=== PATIENT | female | born 1985 | race Caucasian/White ===

== ENCOUNTER 2018-04-06 13:34 | Emergency (ER) | payer OTHER, SELFPAY ==
[2018-04-06] MEDS ORDERED: Hydromorphone 1 mg/ml Ampule IV ONE (14:01)
[2018-04-06] MEDS ORDERED: BENADRYL 50 MG/ML IV ONE (14:01)
[2018-04-06] MEDS ORDERED: Reglan 10 MG/2 ML IV ONE (14:01)
--- NOTE | 2018-04-06 14:08 | ERPHSYRPT ---
- History of Present Illness Time Seen by Provider: 04/06/18 14:00 Source: patient Exam Limitations: clinical condition Patient Subjective Stated Complaint: pt has hx of migraine headache. migraine started saturday and got worse on saturday.has taken motrin,tylenol Triage Nursing Assessment: pt alert, walked in, resp easy, skin w/d/p Physician History: PATIENT WITH A HISTORY OF MIGRAINE HEADACHES FOR 17 YEARS, COMPLAINS OF BIWEEKLY HEADACHES FOR 5-6 MONTHS. HAS PERSISTENT HEADACHE X 4 DAYS. HAS ASSOCIATED PHOTOPHOBIA, NAUSEA, DENIES FEVER, NECK STIFFNESS, EMESIS OR BLURRED VISION. Timing/Duration: day(s) Quality: throbbing Head Pain Location: frontal Severity of Pain-Max: severe Severity of Pain-Current: severe Recent Head Trauma: frequent headaches Modifying Factors: Improves With: exposure to light Associated Symptoms: sensitive to light Previous symptoms: same symptoms as today Allergies/Adverse Reactions: Penicillins Allergy (Mild, Verified 09/30/16 12:57) Hives ketorolac tromethamine [From Toradol] Allergy (Verified 09/30/16 12:57) Hives latex Allergy (Verified 09/30/16 12:57) Rash sumatriptan [From Imitrex] Allergy (Verified 09/30/16 12:57) Rapid Heart Beat sumatriptan succinate [From Imitrex] Allergy (Verified 09/30/16 12:57) Rapid Heart Beat terbinafine HCl [From Lamisil] Allergy (Verified 09/30/16 12:57) Hives Home Medications: Escitalopram Oxalate 10 mg [Lexapro 10 MG] 10 mg DAILY 04/06/18 [History] Topiramate 100 mg [Topamax 100 MG] 300 mg DAILY 04/06/18 [History] Hx Tetanus, Diphtheria Vaccination/Date Given: Yes Hx Influenza Vaccination/Date Given: Yes Hx Pneumococcal Vaccination/Date Given: No Immunizations Up to Date: Yes - Review of Systems Constitutional: No Fever, No Chills Eyes: No Symptoms Ears, Nose, & Throat: No Symptoms Respiratory: No Cough, No Dyspnea Cardiac: No Chest Pain, No Edema, No Syncope Abdominal/Gastrointestinal: No Abdominal Pain, No Nausea, No Vomiting, No Diarrhea Genitourinary Symptoms: No Dysuria Musculoskeletal: No Back Pain, No Neck Pain Skin: No Rash Neurological: Headache, No Dizziness, No Focal Weakness, No Sensory Changes Psychological: No Symptoms Endocrine: No Symptoms All Other Systems: Reviewed and Negative - Past Medical History Pertinent Past Medical History: Yes Neurological History: Migraines ENT History: No Pertinent History Cardiac History: No Pertinent History Respiratory History: No Pertinent History Endocrine Medical History: No Pertinent History Musculoskeletal History: Arthritis GI Medical History: No Pertinent History History: No Pertinent History Psycho-Social History: Anxiety, Depression Female Reproductive Disorders: Endometriosis Other Medical History: KIDNEY STONES - Past Surgical History Past Surgical History: Yes Neuro Surgical History: No Pertinent History Cardiac: No Pertinent History Respiratory: No Pertinent History Gastrointestinal: Cholecystectomy Genitourinary: No Pertinent History Musculoskeletal: No Pertinent History Female Surgical History: Other Other Surgical History: TONSIL , ENDOMETROSIS - Social History Smoking Status: Current every day smoker How long have you smoked: 10 Exposure to second hand smoke: Yes Alcohol Use: Socially Drug Use: none Patient Lives Alone: No Significant Family History: no pertinent family hx - Female History Hx Last Menstrual Period: unknown Hx Now: No - Nursing Vital Signs Nursing Vital Signs: Initial Vital Signs Temperature 98.9 F 04/06/18 14:00 Pulse Rate 71 04/06/18 14:00 Respiratory Rate 89 H 04/06/18 14:00 Blood Pressure 111/82 04/06/18 14:00 O2 Sat by Pulse Oximetry 98 04/06/18 14:00 Pain Scale Pain Intensity 4 - Physical Exam General Appearance: moderate distress Eye Exam: PERRL/EOMI Ears, Nose, Throat Exam: normal ENT inspection, moist mucous membranes, other ( NO PERCUSSION TENDERNESS) Neck Exam: normal inspection, supple, full range of motion, No meningismus Respiratory Exam: normal breath sounds, lungs clear Cardiovascular Exam: regular rate/rhythm, normal heart sounds Gastrointestinal/Abdominal Exam: soft, normal bowel sounds Back Exam: normal inspection Mental Status Exam: alert, oriented x 3, cooperative bone 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 maker Exam: normal hearing, normal speech, PERRL Motor/Sensory Exam: no motor deficit, no sensory deficit, no pronator drift DTR Exam: bicep (R): 2+, bicep (L): 2+, tricep (R): 2+, tricep (L): 2+, knee (R) : 2+, knee (L): 2+, ankle (R): 2+, ankle (L): 2+ Skin Exam: normal color SpO2 Interpretation: normal SpO2: 98 Ordered Tests: Active Orders 24 hr Category Date Time Status IV Insertion STAT Care 04/06/18 14:18 Active Medication Summary Generic Name Dose Route Start Last Admin Trade Name Per PRN Reason Stop Dose Admin Sodium Chloride 1,000 mls @ 250 mls/hr 04/06/18 14:15 04/06/18 14:14 Sodium Chloride 0.9% 1000 Ml IV 05/06/18 14:14 250 mls/hr .Q4H FANNY Administration Discontinued Medications Generic Name Dose Route Start Last Admin Trade Name Per PRN Reason Stop Dose Admin Diphenhydramine HCl 25 mg 04/06/18 14:01 04/06/18 14:14 Benadryl 50 Mg/Ml IV 04/06/18 14:02 25 mg STAT ONE Administration Diphenhydramine HCl Confirm 04/06/18 14:12 Benadryl 50 Mg/Ml Administered 04/06/18 14:13 Dose 50 mg .ROUTE .STK-MED ONE Hydromorphone HCl 1 mg 04/06/18 14:01 04/06/18 14:15 Hydromorphone 1 Mg/Ml Ampule IV 04/06/18 14:02 1 mg STAT ONE Administration Hydromorphone HCl Confirm 04/06/18 14:12 Dilaudid 2 Mg Injection Administered 04/06/18 14:13 Dose 2 mg .ROUTE .STK-MED ONE Metoclopramide HCl 10 mg 04/06/18 14:01 04/06/18 14:14 Reglan 10 Mg/2 Ml IV 04/06/18 14:02 10 mg STAT ONE Administration Metoclopramide HCl Confirm 04/06/18 14:12 Reglan 10 Mg/2 Ml Administered 04/06/18 14:13 Dose 10 mg .ROUTE .STK-MED ONE - Progress Progress: improved, re-examined Progress Note: 04/06/18 15:46 IV NORMAL SALINE 200ML/HR, BENADRYL 25MG, REGLAN 10MG, DILAUDID 1MG IV, Counseled pt/family regarding: diagnosis, need for follow-up - Departure Time of Disposition: 15:55 Departure Disposition: Home Clinical Impression: MIGRAINE CEPHALGIA Condition: Stable Critical Care Time: No Referrals: KRISTA CARL MD [Primary Care Provider] - Instructions: Headache, Adult (DC) Additional Instructions: CONSULT YOUR PRIMARY CARE PROVIDER AND NEUROLOGIST FOR FOLLOWUP. FIORICET WITH CODEINE 1 TABLET EVERY 4-6 HOURS NEEDED FOR PAIN. Prescriptions: Codeine/Butalbit/Acetamin/Caff [Fioricet-Cod 32-17-102-40 Cap] 1 each PO Q4- 6HPRN PRN #15 capsule PRN Reason: Pain
[2018-04-06] MEDS ORDERED: Sodium Chloride 0.9% 1000 ML 1,000 ML ONE (14:12)
[2018-04-06] MEDS ORDERED: DILAUDID 2 MG INJECTION ONE (14:12)
[2018-04-06] MEDS ORDERED: Reglan 10 MG/2 ML ONE (14:12)
[2018-04-06] MEDS ORDERED: BENADRYL 50 MG/ML ONE (14:12)
[2018-04-06] MEDS ORDERED: Sodium Chloride 0.9% 1000 ML 1,000 ML IV SCH (14:15)
[2018-04-06 15:53] VITALS: BP 102/69; PULSE 60; O2SAT 99
== END 2018-04-06 15:54 | disposition home or self-care (01) ==
LOC: ED 13:34
DX: G43.909 Migraine, unspecified, not intractable, without status migrainosus (principal)
CPT/HCPCS: 36000; 96360; 96361; 96374; 96375; 99284; J1170; J1200

== ENCOUNTER 2018-08-09 13:37 | Emergency (ER) | payer BC ==
[2018-08-09] MEDS ORDERED: MORPHINE SULFATE 4 MG INJ ONE (14:03)
[2018-08-09] MEDS ORDERED: Sodium Chloride 0.9% 1000 ML 1,000 ML ONE (14:03)
[2018-08-09] MEDS ORDERED: Phenergan 25 MG INJ ONE (14:03)
[2018-08-09] MEDS: Sodium Chloride 0.9% 1000 ML 1,000 ML IV STA (14:04)
[2018-08-09] MEDS: MORPHINE SULFATE 4 MG INJ IV ONE (14:04)
[2018-08-09] MEDS: Phenergan 25 MG INJ IV ONE (14:04)
--- NOTE | 2018-08-09 14:05 | ERPHSYRPT ---
- History of Present Illness Time Seen by Provider: 08/09/18 13:52 Historian: patient Exam Limitations: no limitations Patient Subjective Stated Complaint: pt here for right lower abd pain today, with n/v. pt has had pain like this before Triage Nursing Assessment: pt crying out, restless, walked in, resp easy, skin w /d/p, abd soft Physician History: 32-year-old white female with history of migraines, arthritis, anxiety, depression, endometriosis, kidney stones. Arrives with complaint of right lower quadrant pain vomiting symptoms since this morning she denies any dysuria or hematuria. Past medical history includes migraines, arthritis, anxiety, depression, endometriosis, kidney stones./. Past surgical history includes cholecystectomy, tonsillectomy, endometriosis Timing/Duration: today Activities at Onset: none Quality: cramping Abdominal Pain Onset Location: RLQ Pain Radiation: no radiation Severity of Pain-Max: moderate Severity of Pain-Current: moderate Modifying Factors: Improves With: nothing Associated Symptoms: nausea, vomiting, No back, No chest pain, No diaphoresis, No diarrhea, No fever/chills, No fatigue, No headache, No heartburn, No loss of appetite, No neck pain, No rash, No shortness of breath, No syncope Previous symptoms: same symptoms as today (similar symptoms with endometriosis) Allergies/Adverse Reactions: Penicillins Allergy (Mild, Verified 08/09/18 13:50) Hives ketorolac tromethamine [From Toradol] Allergy (Verified 08/09/18 13:50) Hives latex Allergy (Verified 08/09/18 13:50) Rash sumatriptan [From Imitrex] Allergy (Verified 08/09/18 13:50) Rapid Heart Beat sumatriptan succinate [From Imitrex] Allergy (Verified 08/09/18 13:50) Rapid Heart Beat terbinafine HCl [From Lamisil] Allergy (Verified 08/09/18 13:50) Hives Home Medications: Topiramate 100 mg [Topamax 100 MG] 300 mg DAILY 04/06/18 [History] Valacyclovir HCl [Valacyclovir] 1,000 mg DAILY 08/09/18 [History] Vortioxetine Hydrobromide [Trintellix] 10 mg DAILY 08/09/18 [History] Hx Tetanus, Diphtheria Vaccination/Date Given: No Hx Influenza Vaccination/Date Given: No Hx Pneumococcal Vaccination/Date Given: No Immunizations Up to Date: Yes - Review of Systems Constitutional: No Fever, No Chills Eyes: No Symptoms Ears, Nose, & Throat: No Symptoms Respiratory: No Cough, No Dyspnea Cardiac: No Chest Pain, No Edema, No Syncope Abdominal/Gastrointestinal: Abdominal Pain, Nausea, Vomiting, No Diarrhea, No Constipation, No Hematemesis, No Hematochezia, No Melena, No Dysphagia Genitourinary Symptoms: No Dysuria Musculoskeletal: No Back Pain, No Neck Pain Skin: No Rash Neurological: No Dizziness, No Focal Weakness, No Sensory Changes Psychological: No Symptoms Endocrine: No Symptoms All Other Systems: Reviewed and Negative - Past Medical History Pertinent Past Medical History: Yes Neurological History: Migraines ENT History: No Pertinent History Cardiac History: No Pertinent History Respiratory History: No Pertinent History Endocrine Medical History: No Pertinent History Musculoskeletal History: Arthritis GI Medical History: No Pertinent History History: No Pertinent History Psycho-Social History: Anxiety, Depression Female Reproductive Disorders: Endometriosis Other Medical History: KIDNEY STONES - Past Surgical History Past Surgical History: Yes Neuro Surgical History: No Pertinent History Cardiac: No Pertinent History Respiratory: No Pertinent History Gastrointestinal: Cholecystectomy Genitourinary: No Pertinent History Musculoskeletal: No Pertinent History Female Surgical History: Other Other Surgical History: TONSIL , ENDOMETROSIS - Social History Smoking Status: Never smoker How long have you smoked: 10 Exposure to second hand smoke: No Alcohol Use: Socially Drug Use: none Patient Lives Alone: No Significant Family History: no pertinent family hx - Female History Hx Last Menstrual Period: june Hx Now: No - Nursing Vital Signs Nursing Vital Signs: Initial Vital Signs Temperature 98.8 F 08/09/18 13:46 Pulse Rate 88 08/09/18 13:46 Respiratory Rate 18 08/09/18 13:46 Blood Pressure 125/86 08/09/18 13:46 O2 Sat by Pulse Oximetry 97 08/09/18 13:46 Pain Scale Pain Intensity 8 - Physical Exam General Appearance: moderate distress, alert Eye Exam: PERRL/EOMI, eyes nml inspection Ears, Nose, Throat Exam: normal ENT inspection, pharynx normal, moist mucous membranes Neck Exam: normal inspection, non-tender, supple, full range of motion Respiratory Exam: normal breath sounds, lungs clear, No respiratory distress Cardiovascular Exam: regular rate/rhythm, normal heart sounds Gastrointestinal/Abdomen Exam: soft, normal bowel sounds, tenderness (right lower quadrant tenderness), No distention, No mass, No guarding, No ecchymosis, No pulsatile mass, No rebound, No hernia, No hepatomegaly, No organomegaly, No splenomegaly Back Exam: normal inspection, normal range of motion, No CVA tenderness, No vertebral tenderness Extremity Exam: normal inspection, normal range of motion, pelvis stable Neurologic Exam: alert, oriented x 3, cooperative, diving judge II-XII nml as tested, normal mood/affect, nml cerebellar function, sensation nml, No motor deficits Skin Exam: normal color, warm, dry SpO2 Interpretation: normal (97%) SpO2: 97 - Course Nursing assessment & vital signs reviewed: Yes Ordered Tests: Active Orders 24 hr Category Date Time Status IV Insertion STAT Care 08/09/18 13:56 Active ABDOMEN AND PELVIS W CONTRAST [CT] Stat Exams 08/09/18 15:26 Taken AMYLASE Stat Lab 08/09/18 14:15 Completed CBC W DIFF Stat Lab 08/09/18 14:15 Completed CMP Stat Lab 08/09/18 14:15 Completed HCG QUALITATIVE,SERUM Stat Lab 08/09/18 14:15 Completed LIPASE Stat Lab 08/09/18 14:15 Completed UA W/ MICROSCOPIC Stat Lab 08/09/18 15:00 Completed Urine Triage Profile Stat Lab 08/09/18 15:00 Completed Medication Summary Discontinued Medications Generic Name Dose Route Start Last Admin Trade Name Freq PRN Reason Stop Dose Admin Sodium Chloride 1,000 mls @ 999 mls/hr 08/09/18 13:56 08/09/18 14:04 Sodium Chloride 0.9% 1000 Ml IV 08/09/18 14:56 999 mls/hr .Q1H1M STA Administration Sodium Chloride Confirm 08/09/18 14:03 Sodium Chloride 0.9% 1000 Ml Administered 08/09/18 14:04 Dose 1,000 mls @ ud .ROUTE .STK-MED ONE Morphine Sulfate 4 mg 08/09/18 13:56 08/09/18 14:04 Morphine Sulfate 4 Mg Inj IV 08/09/18 13:57 4 mg STAT ONE Administration Morphine Sulfate Confirm 08/09/18 14:03 Morphine Sulfate 4 Mg Inj Administered 08/09/18 14:04 Dose 4 mg .ROUTE .STK-MED ONE Promethazine HCl 12.5 mg 08/09/18 13:58 08/09/18 14:04 Phenergan 25 Mg Inj IV 08/09/18 13:59 25 mg STAT ONE Administration Promethazine HCl Confirm 08/09/18 14:03 Phenergan 25 Mg Inj Administered 08/09/18 14:04 Dose 25 mg .ROUTE .STK-MED ONE Lab/Rad Data: Laboratory Result Diagrams 08/09/18 14:15 08/09/18 14:15 Laboratory Results 08/09/18 08/09/18 08/09/18 Range/Units 15:00 15:00 14:15 WBC (4.0-10.5) K/mm3 RBC (4.1-5.4) M/mm3 Hgb (12.0-16.0) gm/dl Hct (35-47) % MCV (78-100) fl MCH (26-32) pg MCHC (32-36) g/dl RDW (11.5-14.0) % Plt Count (150-450) K/mm3 MPV (6-9.5) fl Gran % (36.0-66.0) % Eos # (Auto) (0-0.5) Absolute Lymphs (auto) (1.0-4.6) Absolute Monos (auto) (0.0-1.3) Lymphocytes % (24.0-44.0) % Monocytes % (0.0-12.0) % Eosinophils % (0.00-5.0) % Basophils % (0.0-0.4) % Absolute Granulocytes (1.4-6.9) Basophils # (0-0.4) Sodium (137-145) mmol/L Potassium (3.5-5.1) mmol/L Chloride (98-107) mmol/L Carbon Dioxide (22-30) mmol/L Anion Gap (5-15) MEQ/L BUN (7-17) mg/dL Creatinine (0.52-1.04) mg/dL Estimated GFR ML/MIN Glucose (74-106) mg/dL Calcium (8.4-10.2) mg/dL Total Bilirubin (0.2-1.3) mg/dL AST (14-36) U/L ALT (0-35) U/L Alkaline Phosphatase (38-126) U/L Serum Total Protein (6.3-8.2) g/dL Albumin (3.5-5.0) g/dL Amylase (30-110) U/L Lipase (23-300) U/L Serum , Qual NEGATIVE (Negative) Ur Collection Type CLEAN CATCH Urine Color YELLOW (YELLOW) Urine Appearance CLEAR (CLEAR) Urine pH 5.0 (5-6) Ur Specific [place] 1.015 (1.005-1.025) Urine Protein TRACE (Negative) Urine Ketones TRACE (NEGATIVE) Urine Blood NEGATIVE (0-5) Marco/ul Urine Nitrite NEGATIVE (NEGATIVE) Urine Bilirubin NEGATIVE (NEGATIVE) Urine Urobilinogen NORMAL (0-1) mg/dL Ur Leukocyte Esterase NEGATIVE (NEGATIVE) Urine Microscopic RBC 0-2 (0-2) /HPF Urine Microscopic WBC 0-2 (0-5) /HPF Ur Epithelial Cells RARE (FEW) /HPF Urine Bacteria FEW (NEGATIVE) /HPF Urine Mucus SLIGHT (NEGATIVE) /HPF Urine Culture Reflexed NO (NO) Urine Glucose NEGATIVE (NEGATIVE) mg/dL Urine Opiates Level NEGATIVE (NEGATIVE) Ur Methadone NEGATIVE (NEGATIVE) Urine Barbiturates NEGATIVE (NEGATIVE) Ur Phencyclidine (PCP) NEGATIVE (NEGATIVE) Urine Amphetamine NEGATIVE (NEGATIVE) U Benzodiazepine Level NEGATIVE (NEGATIVE) Urine Cocaine NEGATIVE (NEGATIVE) Urine Marijuana (THC) NEGATIVE (NEGATIVE) 08/09/18 08/09/18 Range/Units 14:15 14:15 WBC 10.6 H (4.0-10.5) K/mm3 RBC 5.40 (4.1-5.4) M/mm3 Hgb 15.2 (12.0-16.0) gm/dl Hct 43.9 (35-47) % MCV 81.3 (78-100) fl MCH 28.1 (26-32) pg MCHC 34.6 (32-36) g/dl RDW 13.5 (11.5-14.0) % Plt Count 276 (150-450) K/mm3 MPV 10.6 H (6-9.5) fl Gran % 78.6 H (36.0-66.0) % Eos # (Auto) 0.01 (0-0.5) Absolute Lymphs (auto) 1.82 (1.0-4.6) Absolute Monos (auto) 0.42 (0.0-1.3) Lymphocytes % 17.1 L (24.0-44.0) % Monocytes % 4.0 (0.0-12.0) % Eosinophils % 0.1 (0.00-5.0) % Basophils % 0.2 (0.0-0.4) % Absolute Granulocytes 8.35 H (1.4-6.9) Basophils # 0.02 (0-0.4) Sodium 142 (137-145) mmol/L Potassium 4.0 (3.5-5.1) mmol/L Chloride 107 (98-107) mmol/L Carbon Dioxide 23 (22-30) mmol/L Anion Gap 16.5 H (5-15) MEQ/L BUN 12 (7-17) mg/dL Creatinine 0.90 (0.52-1.04) mg/dL Estimated GFR > 60.0 ML/MIN Glucose 102 (74-106) mg/dL Calcium 10.0 (8.4-10.2) mg/dL Total Bilirubin 0.60 (0.2-1.3) mg/dL AST 21 (14-36) U/L ALT 15 (0-35) U/L Alkaline Phosphatase 69 (38-126) U/L Serum Total Protein 8.2 (6.3-8.2) g/dL Albumin 5.2 H (3.5-5.0) g/dL Amylase 88 (30-110) U/L Lipase 106 (23-300) U/L Serum , Qual (Negative) Ur Collection Type Urine Color (YELLOW) Urine Appearance (CLEAR) Urine pH (5-6) Ur Specific [place] (1.005-1.025) Urine Protein (Negative) Urine Ketones (NEGATIVE) Urine Blood (0-5) Marco/ul Urine Nitrite (NEGATIVE) Urine Bilirubin (NEGATIVE) Urine Urobilinogen (0-1) mg/dL Ur Leukocyte Esterase (NEGATIVE) Urine Microscopic RBC (0-2) /HPF Urine Microscopic WBC (0-5) /HPF Ur Epithelial Cells (FEW) /HPF Urine Bacteria (NEGATIVE) /HPF Urine Mucus (NEGATIVE) /HPF Urine Culture Reflexed (NO) Urine Glucose (NEGATIVE) mg/dL Urine Opiates Level (NEGATIVE) Ur Methadone (NEGATIVE) Urine Barbiturates (NEGATIVE) Ur Phencyclidine (PCP) (NEGATIVE) Urine Amphetamine (NEGATIVE) U Benzodiazepine Level (NEGATIVE) Urine Cocaine (NEGATIVE) Urine Marijuana (THC) (NEGATIVE) - Progress Progress: improved Progress Note: 08/09/18 14:03 32-year-old white female arrives with complaint of right lower quadrant abdominal pain, nausea vomiting symptoms since this morning. Patient does have a history of migraines arthritis anxiety depression endometriosis and kidney stones. I did inquire as to whether the patient was on any pain medicines at home she stated no however when I reviewed the patient's inspect the do find that she is receiving Tylenol No. 4 on what appears to be a biweekly basis when I reminded her of that she states that she takes this for her migraines. CBC CMP UA hCG amylase lipase have been ordered. Will give patient morphine 4 mg Phenergan 12.5 mg 1 L of normal saline. 08/09/18 19:25 PATIENT IMPROVED AFTER IV morphine, Phenergan, normal saline CT abdomen negative. Patient is instructed to follow-up with her family doctor. pain medications as per patient's family doctor. - Departure Time of Disposition: 17:55 Departure Disposition: Home Clinical Impression: Abdominal pain Qualifiers: Abdominal location: right lower quadrant Qualified Code(s): R10.31 - Right lower quadrant pain Condition: Good Critical Care Time: No Additional Instructions: instructions provided by handwritten note Plenty of fluids, clear fluids only 24-48 hours if abdominal pain. Follow-up with family doctor. If symptoms worse no better in 48 hours or persist longer than . Return for acute distress or for severe symptoms pain medications as per family doctor
[2018-08-09 14:20] LABS: BASOPHIL % 0.2 % (0.0-0.4); Basophil (Absolute #) 0.02 (0-0.4); Eosinophil % 0.1 % (0.00-5.0); Eosinophil (Absolute #) 0.01 (0-0.5); Granulocyte Absolute (ANC) 8.35 (1.4-6.9); Granulocytes % 78.6 % (36.0-66.0); Hematocrit 43.9 % (35-47); Hemoglobin 15.2 gm/dl (12.0-16.0); Lymphocyte (Absolute #) 1.82 (1.0-4.6); Lymphocytes % 17.1 % (24.0-44.0); Mean Cell Volume 81.3 fl (78-100); Mean Corpuscular Hemoglobin 28.1 pg (26-32); Mean Corpuscular Hgb Concent. 34.6 g/dl (32-36); Mean Platelet Volume 10.6 fl (6-9.5); Monocyte (Absolute #) 0.42 (0.0-1.3); Platelet Count 276 K/mm3 (150-450); Red Cell Distribution Width 13.5 % (11.5-14.0); White Blood Count 10.6 K/mm3 (4.0-10.5)
[2018-08-09 14:55] LABS: ALBUMIN 5.2 g/dL (3.5-5.0); ALKALINE PHOSPHATASE 69 U/L (38-126); AMYLASE 88 U/L (30-110); ANION GAP 16.5 MEQ/L (5-15); BLOOD UREA NITROGEN 12 mg/dL (7-17); CHLORIDE 107 mmol/L (98-107); Carbon Dioxide 23 mmol/L (22-30); Glucose 102 mg/dL (74-106); LIPASE 106 U/L (23-300); SGOT/AST 21 U/L (14-36); SGPT/ALT 15 U/L (0-35); SODIUM 142 mmol/L (137-145); Total Protein 8.2 g/dL (6.3-8.2)
[2018-08-09 15:12] VITALS: BP 101/69; PULSE 70
[2018-08-09 15:31] LABS: Appearance CLEAR (CLEAR); Bilirubin NEGATIVE (NEGATIVE); Blood NEGATIVE Ery/ul (0-5); Glucose NEGATIVE (NEGATIVE); Ketones TRACE (NEGATIVE); Leukocyte Esterase NEGATIVE (NEGATIVE); Nitrite NEGATIVE (NEGATIVE); Protein,Urine Dip TRACE (Negative); Specific Gravity 1.015 (1.005-1.025); Urobilinogen NORMAL mg/dL (0-1)
[2018-08-09 15:33] LABS: Bacteria FEW /HPF (NEGATIVE); Epithelial Cells RARE /HPF (FEW); Mucus SLIGHT /HPF (NEGATIVE); RBC 0-2 /HPF (0-2); WBC 0-2 /HPF (0-5)
[2018-08-09 15:41] LABS: Amphetamine,Urine NEGATIVE (NEGATIVE); Barbiturate,Urine NEGATIVE (NEGATIVE); Benzodiazepine,Urine NEGATIVE (NEGATIVE); Cocaine,Urine NEGATIVE (NEGATIVE); Methadone,Urine NEGATIVE (NEGATIVE); Opiate,Urine NEGATIVE (NEGATIVE); PCP,Urine NEGATIVE (NEGATIVE); THC,Urine NEGATIVE (NEGATIVE)
[2018-08-09 19:31] VITALS: O2SAT 97
--- NOTE | 2018-08-11 07:59 | XRAY ---
Indication: Right lower quadrant pain. Multiple contiguous axial images obtained through the abdomen and pelvis using 80 cc Isovue 370 contrast. Comparison: CT renal stone study March 30, 2012. Lung bases are clear. Heart is not enlarged. Noncontrasted stomach and bowel loops appear nonobstructed. Normal appendix. No free fluid/air. Again previous cholecystectomy. Remaining liver, pancreas, spleen, adrenal glands, kidneys, ureters, bladder, uterus, and aorta appear normal in CT appearance and attenuation. No pathologic retroperitoneal lymphadenopathy. Osseous structures intact. No ventral or inguinal hernias. Impression: CT abdomen/pelvis with contrast exam is negative. Comment: Preliminary interpretation was made by [facility]. No discrepancy. CTDI 20.90
== END 2018-08-09 17:55 | disposition home or self-care (01) ==
LOC: ED 13:37
DX: R10.31 Right lower quadrant pain (principal); R11.2 Nausea with vomiting, unspecified; Z79.899 Other long term (current) drug therapy
CPT/HCPCS: 36415; 74177; 80053; 80307; 81000; 82150; 83690; 84703; 85025; 96360; 96374; 96375; 99284; J2270; J2550

== ENCOUNTER 2019-04-12 12:13 | Emergency (ER) | payer BC ==
[2019-04-12 12:21] VITALS: O2SAT 100
[2019-04-12] MEDS ORDERED: Norco 10/325 MG Tablet PO ONE (12:27)
[2019-04-12] MEDS ORDERED: Norco 10/325 MG Tablet ONE (12:33)
--- NOTE | 2019-04-12 12:34 | ERPHSYRPT ---
- History of Present Illness Source: patient Exam Limitations: clinical condition Patient Subjective Stated Complaint: Pt states "I have 3 teeth on my upper right side that started to hurt on saturday night. I went to [address] in [facility] and they were running late and I could not stay to get into see them but they did send in a prescription for ibuprofen 600 and clindimycin. It just hurt so bad right now I cannot take it." Triage Nursing Assessment: Pt presents through the front door with an upright steady gait, able to speak in clear full sentences. Pt in no apparent respiratory distress. pt sitting on bed calmly. Physician History: PATIENT COMPLAINS OF RIGHT UPPER TOOTHACHE X 2 DAYS, EVALUATED IN [facility] LAST NIGHT, UNABLE TO WAIT FOR TREATMENT. PLACED ON MOTRIN 600MG AND CLINDAMYCIN. DENIES FACIAL SWELLING, DIFFICULTY SWALLOWING OR FEVER. Timing/Duration: gradual onset Severity: severe ENT Location: dental Prearrival Treatment: prescription meds Modifying Factors: Improves With: nothing Associated Symptoms: denies symptoms Allergies/Adverse Reactions: Penicillins Allergy (Mild, Verified 08/09/18 13:50) Hives ketorolac tromethamine [From Toradol] Allergy (Verified 08/09/18 13:50) Hives latex Allergy (Verified 08/09/18 13:50) Rash sumatriptan [From Imitrex] Allergy (Verified 08/09/18 13:50) Rapid Heart Beat sumatriptan succinate [From Imitrex] Allergy (Verified 08/09/18 13:50) Rapid Heart Beat terbinafine HCl [From Lamisil] Allergy (Verified 08/09/18 13:50) Hives Home Medications: Amoxicillin 1 tab PO BID 04/12/19 [History] Clonazepam 0.5 mg [Klonopin 0.5 MG] 0.25 mg PO DAILY PRN PRN 04/12/19 [ History] Ibuprofen 800 mg PO Q6HPRN PRN 04/12/19 [History] Hx Tetanus, Diphtheria Vaccination/Date Given: Yes Hx Influenza Vaccination/Date Given: No Hx Pneumococcal Vaccination/Date Given: No Immunizations Up to Date: Yes - Review of Systems Constitutional: No Fever, No Chills Eyes: No Symptoms Ears, Nose, & Throat: Other (DENTAL PAIN) Respiratory: No Symptoms, No Cough, No Dyspnea Cardiac: No Chest Pain, No Edema, No Syncope Abdominal/Gastrointestinal: No Symptoms, No Abdominal Pain, No Nausea, No Vomiting, No Diarrhea Genitourinary Symptoms: No Dysuria Musculoskeletal: No Symptoms, No Back Pain, No Neck Pain Skin: No Symptoms, No Rash Neurological: No Dizziness, No Focal Weakness, No Sensory Changes Psychological: No Symptoms Endocrine: No Symptoms All Other Systems: Reviewed and Negative - Past Medical History Pertinent Past Medical History: Yes Neurological History: Migraines ENT History: No Pertinent History Cardiac History: No Pertinent History Respiratory History: No Pertinent History Endocrine Medical History: No Pertinent History Musculoskeletal History: Arthritis GI Medical History: No Pertinent History History: No Pertinent History Psycho-Social History: Anxiety, Depression Female Reproductive Disorders: Endometriosis Other Medical History: KIDNEY STONES - Past Surgical History Past Surgical History: Yes Neuro Surgical History: No Pertinent History Cardiac: No Pertinent History Respiratory: No Pertinent History Gastrointestinal: Cholecystectomy Genitourinary: No Pertinent History Musculoskeletal: No Pertinent History Female Surgical History: Other Other Surgical History: TONSIL , ENDOMETROSIS - Social History Smoking Status: Former smoker How long have you smoked: 10 Exposure to second hand smoke: Yes Alcohol Use: Socially Drug Use: none Patient Lives Alone: No Significant Family History: no pertinent family hx - Female History Hx Last Menstrual Period: depo Hx Now: No - Nursing Vital Signs Nursing Vital Signs: Initial Vital Signs Temperature 98.2 F 04/12/19 12:15 Pulse Rate 86 04/12/19 12:15 Respiratory Rate 18 04/12/19 12:15 Blood Pressure 98/74 04/12/19 12:15 O2 Sat by Pulse Oximetry 100 04/12/19 12:15 Pain Scale Pain Intensity 6 - Physical Exam General Appearance: no apparent distress Eye Exam: bilateral eye: normal inspection, PERRL, EOMI Ear Exam: bilateral ear: auricle normal, canal normal, TM normal Nasal Exam: normal inspection Throat Exam: dental tenderness Neck Exam: normal inspection Neurologic Exam: alert, oriented x 3 SpO2 Interpretation: normal SpO2: 100 Ordered Tests: Medication Summary Generic Name Dose Route Start Last Admin Trade Name Freq PRN Reason Stop Dose Admin Hydrocodone Bitart/Acetaminophen 1 tab 04/12/19 12:27 Sumner 10/325 Mg Tablet PO 04/12/19 12:28 STAT ONE - Progress Progress Note: 05/19/19 12:33 NORCO 10/325 ORALLY Counseled pt/family regarding: diagnosis, need for follow-up - Departure Departure Disposition: Home Clinical Impression: DENTAL CARIES Condition: Stable Critical Care Time: No Referrals: ALEXA WEINER MD [Primary Care Provider] - Additional Instructions: CONTINUE ANTIBIOTIC CLINDAMYCIN AND MOTRIN DIRECTED. NORCO 5/325 EVERY 6 HOURS FOR SEVERE PAIN NEEDED. CONSULT YOUR DENTIST FOR FOLLOWUP. CONSULT YOUR PRIMARY CARE PROVIDER THIS WEEK FOR PAIN MANAGEMENT. Prescriptions: Hydrocodone/APAP 10/325 mg [Sumner 10/325 MG Tablet] 1 tab PO Q6H PRN PRN # 6 tablet MDD 4 PRN Reason: Pain
[2019-04-12 12:58] VITALS: BP 103/73; PULSE 73
== END 2019-04-12 13:22 | disposition home or self-care (01) ==
LOC: ED 12:13
DX: K02.9 Dental caries, unspecified (principal)
CPT/HCPCS: 99283; A9270-GY

== ENCOUNTER 2019-06-30 18:30 | Emergency (ER) | payer BC ==
[2019-06-30] MEDS ORDERED: Phenergan 25 MG INJ IM ONE (19:35)
[2019-06-30] MEDS ORDERED: MORPHINE SULFATE 4 MG INJ IV ONE (19:35)
[2019-06-30] MEDS ORDERED: Sodium Chloride 0.9% 1000 ML 1,000 ML IV STA ×2 (19:35→21:01)
[2019-06-30 19:40] LABS: BASOPHIL % 0.2 % (0.0-0.4); Basophil (Absolute #) 0.02 (0-0.4); Eosinophil % 0.8 % (0.00-5.0); Eosinophil (Absolute #) 0.07 (0-0.5); Granulocyte Absolute (ANC) 5.73 (1.4-6.9); Hematocrit 46.6 % (35-47); Lymphocyte (Absolute #) 2.51 (1.0-4.6); Mean Cell Volume 83.2 fl (78-100); Mean Corpuscular Hgb Concent. 34.3 g/dl (32-36); Mean Platelet Volume 11.1 fl (6-9.5); Monocyte (Absolute #) 0.63 (0.0-1.3); Platelet Count 245 K/mm3 (150-450)
--- NOTE | 2019-06-30 19:41 | ERPHSYRPT ---
- History of Present Illness Time Seen by Provider: 06/30/19 19:36 Source: patient Exam Limitations: no limitations Patient Subjective Stated Complaint: headache, fever, diarrhea for two days Triage Nursing Assessment: to room per w/c. skin w/d, color normal, resp easy. patient covering eyes. abd soft, nontender. Physician History: 33 year old white female arrives with complaint of headache fever nausea, diarrhea x 2 days past medical history includes, Migraines, arthritis, anxiety, depression, endometriosis, kidney stones past surgical historty includes hysterectomy, tonsils, endometriosis social history: denies tobacco, alcohol or illicit drug use Timing/Duration: day(s) (2 days) Severity: moderate Modifying Factors: Improves With: nothing Associated Symptoms: nausea, fever, headaches, malaise, weakness, other ( diarrhea), No vomiting, No abdominal pain, No shortness of breath, No heartburn , No diaphoresis, No cough, No chills, No chest pain, No loss of appetite, No rash, No syncope, No seizure Allergies/Adverse Reactions: Penicillins Allergy (Mild, Verified 06/30/19 18:52) Hives ketorolac tromethamine [From Toradol] Allergy (Verified 06/30/19 18:52) Hives latex Allergy (Verified 06/30/19 18:52) Rash sumatriptan [From Imitrex] Allergy (Verified 06/30/19 18:52) Rapid Heart Beat sumatriptan succinate [From Imitrex] Allergy (Verified 06/30/19 18:52) Rapid Heart Beat terbinafine HCl [From Lamisil] Allergy (Verified 06/30/19 18:52) Hives Home Medications: Clonazepam 0.5 mg [Klonopin 0.5 MG] 0.5 mg PO DAILY PRN PRN 04/12/19 [ History] Erenumab-Aooe [Aimovig Autoinjector] 140 mg IM UD 06/30/19 [History] Promethazine HCl 25 mg PO UD 06/30/19 [History] Topiramate 100 mg PO HS 06/30/19 [History] Vilazodone HCl [Viibryd] 1 each PO DAILY 06/30/19 [History] Hx Tetanus, Diphtheria Vaccination/Date Given: No Hx Influenza Vaccination/Date Given: Yes Hx Pneumococcal Vaccination/Date Given: No - Review of Systems Constitutional: Fever, Malaise, Weakness, No Chills, No Fatigue, No Lethargy, No Night Sweats Eyes: No Symptoms Ears, Nose, & Throat: No Symptoms Respiratory: No Cough, No Dyspnea Cardiac: No Chest Pain, No Edema, No Syncope Abdominal/Gastrointestinal: Nausea, Diarrhea, No Abdominal Pain, No Vomiting, No Constipation, No Hematemesis, No Hematochezia, No Melena, No Dysphagia, No Appetite Changes Genitourinary Symptoms: Vaginal Bleeding, No Dysuria Musculoskeletal: No Back Pain, No Neck Pain Skin: No Rash Neurological: Headache, No Dizziness, No Focal Weakness, No Gait Changes, No Irritability, No Lethargy, No Paralysis, No Parasthesia, No Seizure Psychological: No Symptoms Endocrine: No Symptoms All Other Systems: Reviewed and Negative - Past Medical History Pertinent Past Medical History: Yes Neurological History: Migraines ENT History: No Pertinent History Cardiac History: No Pertinent History Respiratory History: No Pertinent History Endocrine Medical History: No Pertinent History Musculoskeletal History: Arthritis GI Medical History: No Pertinent History History: No Pertinent History Psycho-Social History: Anxiety, Depression Female Reproductive Disorders: Endometriosis Other Medical History: KIDNEY STONES - Past Surgical History Past Surgical History: Yes Neuro Surgical History: No Pertinent History Cardiac: No Pertinent History Respiratory: No Pertinent History Gastrointestinal: Cholecystectomy Genitourinary: No Pertinent History Musculoskeletal: No Pertinent History Female Surgical History: Hysterectomy, Other Other Surgical History: TONSIL , ENDOMETROSIS - Social History Smoking Status: Never smoker How long have you smoked: 10 Exposure to second hand smoke: No Alcohol Use: Socially Drug Use: none Patient Lives Alone: No Significant Family History: no pertinent family hx - Female History Hx Now: No - Nursing Vital Signs Nursing Vital Signs: Initial Vital Signs Temperature 100.1 F 06/30/19 18:45 Pulse Rate 98 H 06/30/19 18:45 Respiratory Rate 16 06/30/19 18:45 Blood Pressure 113/82 06/30/19 18:45 O2 Sat by Pulse Oximetry 100 06/30/19 18:45 Pain Scale Pain Intensity 6 - Physical Exam General Appearance: mild distress, alert Eye Exam: PERRL/EOMI, eyes nml inspection Ears, Nose, Throat Exam: normal ENT inspection, TMs normal, pharynx normal, moist mucous membranes Neck Exam: normal inspection, non-tender, supple, full range of motion Respiratory Exam: normal breath sounds, lungs clear, No respiratory distress Cardiovascular Exam: regular rate/rhythm, normal heart sounds, normal peripheral pulses, capillary refill <2 sec Gastrointestinal/Abdomen Exam: soft, normal bowel sounds, No tenderness, No mass Back Exam: normal inspection, normal range of motion, No CVA tenderness, No vertebral tenderness Neurologic Exam: alert, oriented x 3, cooperative, snagger II-XII nml as tested, normal mood/affect, nml cerebellar function, nml station & gait, sensation nml, No motor deficits Skin Exam: normal color, warm, dry, No rash Lymphatic Exam: No adenopathy SpO2 Interpretation: normal (100%) SpO2: 100 Ordered Tests: Active Orders 24 hr Category Date Time Status IV Insertion STAT Care 06/30/19 19:35 Active Orthostatic Vital Signs STAT Care 06/30/19 19:41 Active AMYLASE Stat Lab 06/30/19 19:39 Completed CBC W DIFF Stat Lab 06/30/19 19:39 Completed CMP Stat Lab 06/30/19 19:39 Completed CULTURE,URINE Stat Lab 06/30/19 20:25 Received LIPASE Stat Lab 06/30/19 19:39 Completed UA W/RFX UR CULTURE Stat Lab 06/30/19 20:25 Completed Urine Triage Profile Stat Lab 06/30/19 20:25 Completed Medication Summary Discontinued Medications Generic Name Dose Route Start Last Admin Trade Name Freq PRN Reason Stop Dose Admin Sodium Chloride 1,000 mls @ 999 mls/hr 06/30/19 19:35 06/30/19 19:47 Sodium Chloride 0.9% 1000 Ml IV 06/30/19 20:35 999 mls/hr .Q1H1M STA Administration Sodium Chloride Confirm 06/30/19 19:43 Sodium Chloride 0.9% 1000 Ml Administered 06/30/19 19:44 Dose 1,000 mls @ ud .ROUTE .STK-MED ONE Morphine Sulfate 4 mg 06/30/19 19:35 06/30/19 19:46 Morphine Sulfate 4 Mg Inj IV 06/30/19 19:36 4 mg STAT ONE Administration Morphine Sulfate Confirm 06/30/19 19:42 Morphine Sulfate 4 Mg Inj Administered 06/30/19 19:43 Dose 4 mg .ROUTE .STK-MED ONE Promethazine HCl 25 mg 06/30/19 19:35 06/30/19 19:47 Phenergan 25 Mg Inj IM 06/30/19 19:36 25 mg STAT ONE Administration Promethazine HCl Confirm 06/30/19 19:42 Phenergan 25 Mg Inj Administered 06/30/19 19:43 Dose 25 mg .ROUTE .STK-MED ONE Lab/Rad Data: Laboratory Result Diagrams 06/30/19 19:39 06/30/19 19:39 Laboratory Results 06/30/19 06/30/19 06/30/19 Range/Units 20:25 20:25 19:39 WBC (4.0-10.5) K/mm3 RBC (4.1-5.4) M/mm3 Hgb (12.0-16.0) gm/dl Hct (35-47) % MCV (78-100) fl MCH (26-32) pg MCHC (32-36) g/dl RDW (11.5-14.0) % Plt Count (150-450) K/mm3 MPV (6-9.5) fl Gran % (36.0-66.0) % Eos # (Auto) (0-0.5) Absolute Lymphs (auto) (1.0-4.6) Absolute Monos (auto) (0.0-1.3) Lymphocytes % (24.0-44.0) % Monocytes % (0.0-12.0) % Eosinophils % (0.00-5.0) % Basophils % (0.0-0.4) % Absolute Granulocytes (1.4-6.9) Basophils # (0-0.4) Sodium 141 (137-145) mmol/L Potassium 3.9 (3.5-5.1) mmol/L Chloride 106 (98-107) mmol/L Carbon Dioxide 22 (22-30) mmol/L Anion Gap 16.8 H (5-15) MEQ/L BUN 14 (7-17) mg/dL Creatinine 1.00 (0.52-1.04) mg/dL Estimated GFR > 60.0 ML/MIN Glucose 110 H (74-106) mg/dL Calcium 10.1 (8.4-10.2) mg/dL Total Bilirubin 0.60 (0.2-1.3) mg/dL AST 23 (14-36) U/L ALT 18 (0-35) U/L Alkaline Phosphatase 54 (38-126) U/L Serum Total Protein 7.8 (6.3-8.2) g/dL Albumin 4.7 (3.5-5.0) g/dL Amylase 95 (30-110) U/L Lipase 69 (23-300) U/L Urine Color DARK YELLOW (YELLOW) Urine Appearance CLEAR (CLEAR) Urine pH 5.0 (5-6) Ur Specific Matthews 1.028 (1.005-1.025) Urine Protein 30 (Negative) Urine Ketones NEGATIVE (NEGATIVE) Urine Blood NEGATIVE (0-5) Marco/ul Urine Nitrite NEGATIVE (NEGATIVE) Urine Bilirubin SMALL (NEGATIVE) Urine Urobilinogen NEGATIVE (0-1) mg/dL Ur Leukocyte Esterase TRACE (NEGATIVE) Urine WBC (Auto) NONE (0-5) /HPF Urine RBC (Auto) 0-2 (0-2) /HPF U Epithel Cells (Auto) NONE (FEW) /HPF Urine Bacteria (Auto) NONE (NEGATIVE) /HPF Urine Mucus (Auto) SLIGHT (NEGATIVE) /HPF Urine Culture Reflexed ORDERED SEPARATELY (NO) Urine Glucose NEGATIVE (NEGATIVE) mg/dL Urine Opiates Level POSITIVE (NEGATIVE) Ur Methadone NEGATIVE (NEGATIVE) Urine Barbiturates NEGATIVE (NEGATIVE) Ur Phencyclidine (PCP) NEGATIVE (NEGATIVE) Urine Amphetamine NEGATIVE (NEGATIVE) U Benzodiazepine Level NEGATIVE (NEGATIVE) Urine Cocaine NEGATIVE (NEGATIVE) Urine Marijuana (THC) NEGATIVE (NEGATIVE) 06/30/19 Range/Units 19:39 WBC 9.0 (4.0-10.5) K/mm3 RBC 5.60 H (4.1-5.4) M/mm3 Hgb 16.0 (12.0-16.0) gm/dl Hct 46.6 (35-47) % MCV 83.2 (78-100) fl MCH 28.5 (26-32) pg MCHC 34.3 (32-36) g/dl RDW 14.0 (11.5-14.0) % Plt Count 245 (150-450) K/mm3 MPV 11.1 H (6-9.5) fl Gran % 64.0 (36.0-66.0) % Eos # (Auto) 0.07 (0-0.5) Absolute Lymphs (auto) 2.51 (1.0-4.6) Absolute Monos (auto) 0.63 (0.0-1.3) Lymphocytes % 28.0 (24.0-44.0) % Monocytes % 7.0 (0.0-12.0) % Eosinophils % 0.8 (0.00-5.0) % Basophils % 0.2 (0.0-0.4) % Absolute Granulocytes 5.73 (1.4-6.9) Basophils # 0.02 (0-0.4) Sodium (137-145) mmol/L Potassium (3.5-5.1) mmol/L Chloride (98-107) mmol/L Carbon Dioxide (22-30) mmol/L Anion Gap (5-15) MEQ/L BUN (7-17) mg/dL Creatinine (0.52-1.04) mg/dL Estimated GFR ML/MIN Glucose (74-106) mg/dL Calcium (8.4-10.2) mg/dL Total Bilirubin (0.2-1.3) mg/dL AST (14-36) U/L ALT (0-35) U/L Alkaline Phosphatase (38-126) U/L Serum Total Protein (6.3-8.2) g/dL Albumin (3.5-5.0) g/dL Amylase (30-110) U/L Lipase (23-300) U/L Urine Color (YELLOW) Urine Appearance (CLEAR) Urine pH (5-6) Ur Specific Matthews (1.005-1.025) Urine Protein (Negative) Urine Ketones (NEGATIVE) Urine Blood (0-5) Marco/ul Urine Nitrite (NEGATIVE) Urine Bilirubin (NEGATIVE) Urine Urobilinogen (0-1) mg/dL Ur Leukocyte Esterase (NEGATIVE) Urine WBC (Auto) (0-5) /HPF Urine RBC (Auto) (0-2) /HPF U Epithel Cells (Auto) (FEW) /HPF Urine Bacteria (Auto) (NEGATIVE) /HPF Urine Mucus (Auto) (NEGATIVE) /HPF Urine Culture Reflexed (NO) Urine Glucose (NEGATIVE) mg/dL Urine Opiates Level (NEGATIVE) Ur Methadone (NEGATIVE) Urine Barbiturates (NEGATIVE) Ur Phencyclidine (PCP) (NEGATIVE) Urine Amphetamine (NEGATIVE) U Benzodiazepine Level (NEGATIVE) Urine Cocaine (NEGATIVE) Urine Marijuana (THC) (NEGATIVE) - Progress Progress: improved Progress Note: 06/30/19 21:01 The patient feeling better after morphine, Phenergan, 1 L of normal saline. Labs essentially normal hemoglobin 16.1. Will give patient a second liter of normal saline. Plan on discharge - Departure Departure Disposition: Home Clinical Impression: Mild dehydration, Nausea Headache Qualifiers: Headache type: unspecified Headache chronicity pattern: unspecified pattern Intractability: not intractable Qualified Code(s): R51 - Headache Diarrhea Qualifiers: Diarrhea type: unspecified type Qualified Code(s): R19.7 - Diarrhea, unspecified Condition: Fair Critical Care Time: No Referrals: ALEXA WEINER MD [Primary Care Provider] - Additional Instructions: Return home. Plenty of fluids clear fluids only 24-48 hours if nausea or vomiting. Tylenol every 4 hours as needed for pain. Followup with your family . Return for acute distress or for severe symptoms
[2019-06-30 19:42] LABS: Mean Corpuscular Hemoglobin 28.5 pg (26-32)
[2019-06-30] MEDS ORDERED: MORPHINE SULFATE 4 MG INJ ONE (19:42)
[2019-06-30] MEDS ORDERED: Phenergan 25 MG INJ ONE (19:42)
[2019-06-30] MEDS ORDERED: Sodium Chloride 0.9% 1000 ML 1,000 ML ONE ×2 (19:43→21:02)
[2019-06-30 19:47] LABS: ALBUMIN 4.7 g/dL (3.5-5.0); ALKALINE PHOSPHATASE 54 U/L (38-126); AMYLASE 95 U/L (30-110); ANION GAP 16.8 MEQ/L (5-15); BLOOD UREA NITROGEN 14 mg/dL (7-17); CHLORIDE 106 mmol/L (98-107); Calcium 10.1 mg/dL (8.4-10.2); Carbon Dioxide 22 mmol/L (22-30); Glucose 110 mg/dL (74-106); LIPASE 69 U/L (23-300); Potassium 3.9 mmol/L (3.5-5.1); SGOT/AST 23 U/L (14-36); SGPT/ALT 18 U/L (0-35); SODIUM 141 mmol/L (137-145); Total Protein 7.8 g/dL (6.3-8.2)
[2019-06-30 20:42] LABS: Appearance CLEAR (CLEAR); Bilirubin SMALL (NEGATIVE); Blood NEGATIVE Ery/ul (0-5); Glucose NEGATIVE (NEGATIVE); Ketones NEGATIVE (NEGATIVE); Leukocyte Esterase TRACE (NEGATIVE); Mucus SLIGHT /HPF (NEGATIVE); Nitrite NEGATIVE (NEGATIVE); Protein,Urine Dip 30 (Negative); RBC 0-2 /HPF (0-2); Specific Gravity 1.028 (1.005-1.025); Urobilinogen NEGATIVE mg/dL (0-1)
[2019-06-30 20:51] LABS: Amphetamine,Urine NEGATIVE (NEGATIVE); Barbiturate,Urine NEGATIVE (NEGATIVE); Benzodiazepine,Urine NEGATIVE (NEGATIVE); Cocaine,Urine NEGATIVE (NEGATIVE); Methadone,Urine NEGATIVE (NEGATIVE); Opiate,Urine POSITIVE (NEGATIVE); PCP,Urine NEGATIVE (NEGATIVE); THC,Urine NEGATIVE (NEGATIVE)
[2019-06-30 21:04] VITALS: O2SAT 100
[2019-06-30 22:32] VITALS: BP 97/55; PULSE 84
== END 2019-06-30 22:33 | disposition home or self-care (01) ==
LOC: ED 18:30
DX: E86.0 Dehydration (principal); R11.0 Nausea; R51 Headache; R19.7 Diarrhea, unspecified
CPT/HCPCS: 36415; 80053; 80307; 81001; 82150; 83690; 85025; 87086; 96360; 96361; 96372; 96374; 99284; J2270; J2550

== ENCOUNTER 2020-10-07 21:14 | Emergency (ER) | payer BC ==
[2020-10-07 21:26] VITALS: O2SAT 98
[2020-10-07] MEDS ORDERED: Zofran 4 MG/2 ML VIAL IV ONE (21:45)
[2020-10-07] MEDS ORDERED: SUBLIMAZE 100 MCG/2 ML IV ONE (21:45)
[2020-10-07] MEDS ORDERED: Sodium Chloride 0.9% 1000 ML 1,000 ML IV STA (21:45)
--- NOTE | 2020-10-07 21:45 | ERPHSYRPT ---
- History of Present Illness Time Seen by Provider: 10/07/20 21:44 Historian: patient Exam Limitations: no limitations Patient Subjective Stated Complaint: pt c/o Lt upper abd pain and low back pain Triage Nursing Assessment: Pt c/o pain to Lt upper abd that radiates to lt lower back area. Pt states, "pain comes and goes but gets really sharp at times". Pt c/o abd pain x3-4 days but just radiated to the lt lower back today. Lungs clear, heart tones reg, abd soft with active bs x4 quad, tender on palpation to Lt upper abd. LBM today. Physician History: 35-year-old female came to the emergency room with complaining of left upper quadrant abdominal pain radiating from the back to the front. Pain started 3 days ago and today it got worse. She denies any nausea vomiting diarrhea burning urination constipation blood in the urine or pain while urination. Timing/Duration: day(s) (three days) Activities at Onset: none Quality: cramping Abdominal Pain Onset Location: LUQ Pain Radiation: LLQ Severity of Pain-Max: moderate Severity of Pain-Current: moderate Modifying Factors: Improves With: nothing Associated Symptoms: denies symptoms Allergies/Adverse Reactions: Penicillins Allergy (Mild, Verified 10/07/20 21:33) Hives ketorolac tromethamine [From Toradol] Allergy (Verified 10/07/20 21:33) Hives latex Allergy (Verified 10/07/20 21:33) Rash sumatriptan [From Imitrex] Allergy (Verified 10/07/20 21:33) Rapid Heart Beat sumatriptan succinate [From Imitrex] Allergy (Verified 10/07/20 21:33) Rapid Heart Beat terbinafine HCl [From Lamisil] Allergy (Verified 10/07/20 21:33) Hives Home Medications: Promethazine HCl 25 mg PO Q6H PRN PRN 06/30/19 [History] Topiramate 100 mg PO HS 06/30/19 [History] Cyclobenzaprine HCl [Flexeril] 5 mg PO Q8H PRN PRN 10/07/20 [History] Duloxetine HCl 40 mg PO HS 10/07/20 [History] Hx Tetanus, Diphtheria Vaccination/Date Given: Yes Hx Influenza Vaccination/Date Given: No Hx Pneumococcal Vaccination/Date Given: No Immunizations Up to Date: Yes Travel Risk - International Travel Have you traveled outside of the country in past 3 weeks: No - Coronavirus Screening Are you exhibiting any of the following symptoms?: No - Review of Systems Constitutional: No Fever, No Chills Eyes: No Symptoms Ears, Nose, & Throat: No Symptoms Respiratory: No Cough, No Dyspnea Cardiac: No Chest Pain, No Edema, No Syncope Abdominal/Gastrointestinal: Abdominal Pain, No Nausea, No Vomiting, No Diarrhea Genitourinary Symptoms: No Dysuria Musculoskeletal: No Back Pain, No Neck Pain Skin: No Rash Neurological: No Dizziness, No Focal Weakness, No Sensory Changes Psychological: No Symptoms Endocrine: No Symptoms All Other Systems: Reviewed and Negative - Past Medical History Pertinent Past Medical History: Yes Neurological History: Migraines ENT History: No Pertinent History Cardiac History: No Pertinent History Respiratory History: No Pertinent History Endocrine Medical History: No Pertinent History Musculoskeletal History: Arthritis GI Medical History: No Pertinent History History: No Pertinent History Psycho-Social History: Anxiety, Depression Female Reproductive Disorders: Endometriosis Other Medical History: KIDNEY STONES - Past Surgical History Past Surgical History: Yes Neuro Surgical History: No Pertinent History Cardiac: No Pertinent History Respiratory: No Pertinent History Gastrointestinal: Cholecystectomy Genitourinary: No Pertinent History Musculoskeletal: No Pertinent History Female Surgical History: Hysterectomy, Other Other Surgical History: TONSIL , ENDOMETROSIS - Social History Smoking Status: Current every day smoker How long have you smoked: 17 yrs Exposure to second hand smoke: No Alcohol Use: Socially Drug Use: none Patient Lives Alone: No Significant Family History: no pertinent family hx - Female History Hx Now: No - Nursing Vital Signs Nursing Vital Signs: Initial Vital Signs Temperature 98.3 F 10/07/20 21:24 Pulse Rate 98 H 10/07/20 21:24 Respiratory Rate 18 10/07/20 21:24 Blood Pressure 120/86 10/07/20 21:24 O2 Sat by Pulse Oximetry 98 10/07/20 21:24 Pain Scale Pain Intensity 7 - Physical Exam General Appearance: no apparent distress, alert Eye Exam: PERRL/EOMI, eyes nml inspection Ears, Nose, Throat Exam: normal ENT inspection, pharynx normal, moist mucous membranes Neck Exam: normal inspection, non-tender, supple, full range of motion Respiratory Exam: normal breath sounds, lungs clear, No respiratory distress Cardiovascular Exam: regular rate/rhythm, normal heart sounds Gastrointestinal/Abdomen Exam: soft, tenderness (LUQ), No mass Back Exam: normal inspection, normal range of motion, No CVA tenderness, No vertebral tenderness Extremity Exam: normal inspection, normal range of motion, pelvis stable Neurologic Exam: alert, oriented x 3, cooperative, normal mood/affect, nml cerebellar function, sensation nml, No motor deficits Skin Exam: normal color, warm, dry SpO2: 98 - Course Nursing assessment & vital signs reviewed: Yes - Radiology Exams Abdomen X-ray Interpretation: Reviewed by me (constipation) - CT Exams Abdomen/Pelvis CT Interpretation: Tele-radiologist Report, No appendicitis Ordered Tests: Active Orders 24 hr Category Date Time Status ABDOMEN AND PELVIS W/0 CONTRAS [CT] Stat Exams 10/07/20 23:06 Taken OBSTR/ACUTE ABDOMEN SERIES Stat Exams 10/07/20 21:48 Taken AMYLASE Stat Lab 10/07/20 21:21 Completed CBC W DIFF Stat Lab 10/07/20 21:21 Completed CMP Stat Lab 10/07/20 21:21 Completed LIPASE Stat Lab 10/07/20 21:21 Completed UA W/RFX UR CULTURE Stat Lab 10/07/20 21:21 Completed Urine Triage Profile Stat Lab 10/07/20 21:21 Completed Medication Summary Discontinued Medications Generic Name Dose Route Start Last Admin Trade Name Per PRN Reason Stop Dose Admin Fentanyl Citrate 50 mcg 10/07/20 21:45 10/07/20 21:58 Sublimaze 100 Mcg/2 Ml IV 10/07/20 21:46 50 mcg STAT ONE Administration Fentanyl Citrate Confirm 10/07/20 21:54 Sublimaze 100 Mcg/2 Ml Administered 10/07/20 21:55 Dose 100 mcg .ROUTE .STK-MED ONE Sodium Chloride 1,000 mls @ 999 mls/hr 10/07/20 21:45 10/07/20 21:58 Sodium Chloride 0.9% 1000 Ml IV 10/07/20 22:45 999 mls/hr .Q1H1M STA Administration Sodium Chloride Confirm 10/07/20 21:54 Sodium Chloride 0.9% 1000 Ml Administered 10/07/20 21:55 Dose 1,000 mls @ ud .ROUTE .STK-MED ONE Magnesium Hydroxide 30 ml 10/07/20 23:09 10/07/20 23:14 Milk Of Magnesia 30 Ml PO 10/07/20 23:10 30 ml STAT ONE Administration Magnesium Hydroxide Confirm 10/07/20 23:13 Milk Of Magnesia 30 Ml Administered 10/07/20 23:14 Dose 30 ml .ROUTE .STK-MED ONE Metoclopramide HCl 10 mg 10/07/20 23:09 10/07/20 23:14 Reglan 10 Mg/2 Ml IV 10/07/20 23:10 10 mg STAT ONE Administration Metoclopramide HCl Confirm 10/07/20 23:13 Reglan 10 Mg/2 Ml Administered 10/07/20 23:14 Dose 10 mg .ROUTE .STK-MED ONE Ondansetron HCl 4 mg 10/07/20 21:45 10/07/20 21:58 Zofran 4 Mg/2 Ml Vial IV 10/07/20 21:46 4 mg STAT ONE Administration Ondansetron HCl Confirm 10/07/20 21:53 Zofran 4 Mg/2 Ml Vial Administered 10/07/20 21:54 Dose 4 mg .ROUTE .STK-MED ONE Lab/Rad Data: Laboratory Result Diagrams 10/07/20 21:21 10/07/20 21:21 Laboratory Results 10/07/20 10/07/20 10/07/20 Range/Units 21:21 21:21 21:21 WBC 14.1 H (4.0-10.5) K/mm3 RBC 4.86 (4.1-5.4) M/mm3 Hgb 14.6 (12.0-16.0) gm/dl Hct 42.2 (35-47) % MCV 86.8 (78-100) fl MCH 30.0 (26-32) pg MCHC 34.6 (32-36) g/dl RDW 14.0 (11.5-14.0) % Plt Count 302 (150-450) K/mm3 MPV 10.5 (7.5-11.0) fl Gran % 62.5 (36.0-66.0) % Eos # (Auto) 0.09 (0-0.5) Absolute Lymphs (auto) 4.29 (1.0-4.6) Absolute Monos (auto) 0.86 (0.0-1.3) Lymphocytes % 30.4 (24.0-44.0) % Monocytes % 6.1 (0.0-12.0) % Eosinophils % 0.6 (0.00-5.0) % Basophils % 0.4 (0.0-0.4) % Absolute Granulocytes 8.81 H (1.4-6.9) Basophils # 0.05 (0-0.4) Sodium 140 (137-145) mmol/L Potassium 3.7 (3.5-5.1) mmol/L Chloride 109 H (98-107) mmol/L Carbon Dioxide 22 (22-30) mmol/L Anion Gap 12.7 (5-15) MEQ/L BUN 9 (7-17) mg/dL Creatinine 0.77 (0.52-1.04) mg/dL Estimated GFR > 60.0 ML/MIN Glucose 92 (74-106) mg/dL Calcium 9.6 (8.4-10.2) mg/dL Total Bilirubin 0.20 (0.2-1.3) mg/dL AST 31 (14-36) U/L ALT 27 (0-35) U/L Alkaline Phosphatase 65 (38-126) U/L Serum Total Protein 8.1 (6.3-8.2) g/dL Albumin 4.8 (3.5-5.0) g/dL Amylase 109 (30-110) U/L Lipase 154 (23-300) U/L Urine Color (YELLOW) Urine Appearance (CLEAR) Urine pH (5-6) Ur Specific [place] (1.005-1.025) Urine Protein (Negative) Urine Ketones (NEGATIVE) Urine Blood (0-5) Marco/ul Urine Nitrite (NEGATIVE) Urine Bilirubin (NEGATIVE) Urine Urobilinogen (0-1) mg/dL Ur Leukocyte Esterase (NEGATIVE) Urine WBC (Auto) (0-5) /HPF Urine RBC (Auto) (0-2) /HPF U Epithel Cells (Auto) (FEW) /HPF Urine Bacteria (Auto) (NEGATIVE) /HPF Urine Mucus (Auto) (NEGATIVE) /HPF Urine Culture Reflexed (NO) Urine Glucose (NEGATIVE) mg/dL Urine Opiates Level NEGATIVE (NEGATIVE) Ur Methadone NEGATIVE (NEGATIVE) Urine Barbiturates NEGATIVE (NEGATIVE) Ur Phencyclidine (PCP) NEGATIVE (NEGATIVE) Urine Amphetamine NEGATIVE (NEGATIVE) U Benzodiazepine Level NEGATIVE (NEGATIVE) Urine Cocaine NEGATIVE (NEGATIVE) Urine Marijuana (THC) NEGATIVE (NEGATIVE) 10/07/20 Range/Units 21:21 WBC (4.0-10.5) K/mm3 RBC (4.1-5.4) M/mm3 Hgb (12.0-16.0) gm/dl Hct (35-47) % MCV (78-100) fl MCH (26-32) pg MCHC (32-36) g/dl RDW (11.5-14.0) % Plt Count (150-450) K/mm3 MPV (7.5-11.0) fl Gran % (36.0-66.0) % Eos # (Auto) (0-0.5) Absolute Lymphs (auto) (1.0-4.6) Absolute Monos (auto) (0.0-1.3) Lymphocytes % (24.0-44.0) % Monocytes % (0.0-12.0) % Eosinophils % (0.00-5.0) % Basophils % (0.0-0.4) % Absolute Granulocytes (1.4-6.9) Basophils # (0-0.4) Sodium (137-145) mmol/L Potassium (3.5-5.1) mmol/L Chloride (98-107) mmol/L Carbon Dioxide (22-30) mmol/L Anion Gap (5-15) MEQ/L BUN (7-17) mg/dL Creatinine (0.52-1.04) mg/dL Estimated GFR ML/MIN Glucose (74-106) mg/dL Calcium (8.4-10.2) mg/dL Total Bilirubin (0.2-1.3) mg/dL AST (14-36) U/L ALT (0-35) U/L Alkaline Phosphatase (38-126) U/L Serum Total Protein (6.3-8.2) g/dL Albumin (3.5-5.0) g/dL Amylase (30-110) U/L Lipase (23-300) U/L Urine Color COLORLESS (YELLOW) Urine Appearance CLEAR (CLEAR) Urine pH 7.0 (5-6) Ur Specific [place] 1.002 (1.005-1.025) Urine Protein NEGATIVE (Negative) Urine Ketones NEGATIVE (NEGATIVE) Urine Blood NEGATIVE (0-5) Marco/ul Urine Nitrite NEGATIVE (NEGATIVE) Urine Bilirubin NEGATIVE (NEGATIVE) Urine Urobilinogen NEGATIVE (0-1) mg/dL Ur Leukocyte Esterase NEGATIVE (NEGATIVE) Urine WBC (Auto) NONE (0-5) /HPF Urine RBC (Auto) NONE (0-2) /HPF U Epithel Cells (Auto) NONE (FEW) /HPF Urine Bacteria (Auto) NONE (NEGATIVE) /HPF Urine Mucus (Auto) SLIGHT (NEGATIVE) /HPF Urine Culture Reflexed NO (NO) Urine Glucose NEGATIVE (NEGATIVE) mg/dL Urine Opiates Level (NEGATIVE) Ur Methadone (NEGATIVE) Urine Barbiturates (NEGATIVE) Ur Phencyclidine (PCP) (NEGATIVE) Urine Amphetamine (NEGATIVE) U Benzodiazepine Level (NEGATIVE) Urine Cocaine (NEGATIVE) Urine Marijuana (THC) (NEGATIVE) - Progress Progress: improved, pain not gone completely Counseled pt/family regarding: lab results, diagnosis, need for follow-up, rad results - Departure Departure Disposition: Home Clinical Impression: Abdominal pain Qualifiers: Abdominal location: left upper quadrant Qualified Code(s): R10.12 - Left upper quadrant pain Condition: Stable Critical Care Time: No Referrals: MESERET HERNANDEZ,ALEXA ROSENTHAL MD [Primary Care Provider] - Instructions: Acute Abdomen (Belly Pain), Adult (DC) Additional Instructions: ABDOMINAL PAIN 1. There are several different causes for abdominal pain, some of which may not be able to be identified on initial examination. 2. The important thing to remember is that bodily functions can change in a short period of time. If you notice any of the following symptoms, return to the emergency department or consult your doctor immediately: A. Worsening pain or no improvement in the next 12 hours. B. Increasing, severe abdominal pain C. Blood in stool D. Black stools E. Persistent vomiting F. Fever or chills or other symptoms Discharge/Care Plan ALEXA RUIZ was seen on 10/07/20 in the Emergency Room. The patient was counseled regarding Diagnosis,Lab results, Imaging studies, need for follow up and when to return to the Emergency Room. Prescriptions given: Discharge Note I have spoken with the patient and/or caregivers. I have explained the patient's condition, diagnosis and treatment plan based on the information available to me at this time. I have answered the patient's and/or caregiver's questions and addressed any concerns. The patient and/or caregivers have as good understanding of the patient's diagnosis, condition and treatment plan as can be expected at this point. The vital signs have been stable. The patient's condition is stable and appropriate for discharge from the emergency department. The patient will pursue further outpatient evaluation with the primary care physician or other designated or consulting physician as outlined in the discharge instructions. The patient and/or caregivers are agreeable to this plan of care and follow-up instructions have been explained in detail. The patient and/or caregivers have received these instruction. The patient/and or caregivers are aware that any significant change in condition or worsening of symptoms should prompt an immediate return to this or the closest emergency department or call 911. ALEXA RUIZ was seen on 10/07/20 n the Emergency Room. At that time you were treated for an emergent condition, during your visit Laboratory, Radiology and/or other procedures may have been ordered. It is very important that you follow-up with your Primary Care Physician ALEXA HERNANDEZ within the next 24-48 hours to review your Emergency Room visit and the final results of testing that was ordered. Some test results such as Urine Cultures, Blood Cultures, and other cultures if ordered will not be finalized for 24-48 hours. If you do not have a Primary Care Provider please call the medical records department at [phone] to obtain a copy of your results or you may sign into our patient portal to obtain these results by visiting us @ [email or web address] and completing the following steps: 1. Click on the Patient Portal link 2. Click the Patient Self Enrollment Link to complete the enrollment form and entering your 3. Once the enrollment form is completed you will receive an email with a temporary ID and password at the email address you provided. 4. Next choose a user name and password. Your user name must be at least 4 characters long and your password must be at least 4 characters long. 5. Choose a security question from the list and provide your answer to the question. If you already have signed into the Health Portal you may access your Health Care Information 17/06 by the following steps: 1. Login to our website @ [email or web address] 2. Enter your original user name and password. FAQS The [facility] Health Portal is an online tool that contains your Lab Results, Radiology Reports, Visit History, Discharge Instructions and Health Summary Lab and Radiology Results will not be available for 72 hours on the portal. The Portal is a secure site, passwords are encryted and URLs are re-written so they cannot be copied and pasted. You and authorized family members are the only ones who can access your Portal. Also there is a timeout feature that protects your information if you leave the Portal page open. If you have technical difficulty please use the Contact Us link on the page this will allow you to submit any questions you have regarding the Portal or you may contact the Medical Record Department at [phone] ext [phone].
[2020-10-07] MEDS ORDERED: Zofran 4 MG/2 ML VIAL ONE (21:53)
[2020-10-07] MEDS ORDERED: Sodium Chloride 0.9% 1000 ML 1,000 ML ONE (21:54)
[2020-10-07] MEDS ORDERED: SUBLIMAZE 100 MCG/2 ML ONE (21:54)
[2020-10-07 21:55] LABS: Absolute Neutrophil Ct (ANC) 8.81 (1.4-6.9); Appearance CLEAR (CLEAR); BASOPHIL % 0.4 % (0.0-0.4); Basophil (Absolute #) 0.05 (0-0.4); Bilirubin NEGATIVE (NEGATIVE); Blood NEGATIVE Ery/ul (0-5); Eosinophil % 0.6 % (0.00-5.0); Eosinophil (Absolute #) 0.09 (0-0.5); Glucose NEGATIVE (NEGATIVE); Hematocrit 42.2 % (35-47); Hemoglobin 14.6 gm/dl (12.0-16.0); Ketones NEGATIVE (NEGATIVE); Leukocyte Esterase NEGATIVE (NEGATIVE); Lymphocyte (Absolute #) 4.29 (1.0-4.6); Lymphocytes % 30.4 % (24.0-44.0); Mean Cell Volume 86.8 fl (78-100); Mean Corpuscular Hgb Concent. 34.6 g/dl (32-36); Mean Platelet Volume 10.5 fl (7.5-11.0); Monocyte (Absolute #) 0.86 (0.0-1.3); Monocytes % 6.1 % (0.0-12.0); Mucus SLIGHT /HPF (NEGATIVE); Neutrophil % 62.5 % (36.0-66.0); Nitrite NEGATIVE (NEGATIVE); Platelet Count 302 K/mm3 (150-450); Protein,Urine Dip NEGATIVE (Negative); Red Blood Count 4.86 M/mm3 (4.1-5.4); Specific Gravity 1.002 (1.005-1.025); Urobilinogen NEGATIVE mg/dL (0-1); White Blood Count 14.1 K/mm3 (4.0-10.5)
[2020-10-07 22:00] LABS: ALBUMIN 4.8 g/dL (3.5-5.0); ALKALINE PHOSPHATASE 65 U/L (38-126); AMYLASE 109 U/L (30-110); ANION GAP 12.7 MEQ/L (5-15); BLOOD UREA NITROGEN 9 mg/dL (7-17); CHLORIDE 109 mmol/L (98-107); Calcium 9.6 mg/dL (8.4-10.2); Carbon Dioxide 22 mmol/L (22-30); Creatinine 1 0.77 mg/dL (0.52-1.04); EST GLOMERULAR FILTRATION RATE > 60.0 ML/MIN; Glucose 92 mg/dL (74-106); LIPASE 154 U/L (23-300); Potassium 3.7 mmol/L (3.5-5.1); SGOT/AST 31 U/L (14-36); SGPT/ALT 27 U/L (0-35); SODIUM 140 mmol/L (137-145); Total Protein 8.1 g/dL (6.3-8.2)
[2020-10-07 22:09] LABS: Amphetamine,Urine NEGATIVE (NEGATIVE); Barbiturate,Urine NEGATIVE (NEGATIVE); Benzodiazepine,Urine NEGATIVE (NEGATIVE); Cocaine,Urine NEGATIVE (NEGATIVE); Methadone,Urine NEGATIVE (NEGATIVE); Opiate,Urine NEGATIVE (NEGATIVE); PCP,Urine NEGATIVE (NEGATIVE); THC,Urine NEGATIVE (NEGATIVE)
[2020-10-07] MEDS ORDERED: MILK OF MAGNESIA 30 ML PO ONE (23:09)
[2020-10-07] MEDS ORDERED: Reglan 10 MG/2 ML IV ONE (23:09)
[2020-10-07] MEDS ORDERED: MILK OF MAGNESIA 30 ML ONE (23:13)
[2020-10-07] MEDS ORDERED: Reglan 10 MG/2 ML ONE (23:13)
[2020-10-08 00:05] VITALS: BP 114/78; PULSE 84
--- NOTE | 2020-10-08 08:01 | XRAY ---
Indication: Left upper quadrant pain and nausea. Elevated WBC. History renal stones. Multiple contiguous axial images obtained through the abdomen and pelvis without contrast as ordered. Comparison: CT renal stone study June 20, 2015. Lung bases are clear. Heart is not enlarged. Stomach is distended with food. Noncontrasted stomach and bowel loops appear nonobstructed. Normal appendix. There is now mild diffuse scattered colonic fecal debris throughout. Stable cholecystectomy. Interval hysterectomy. No free fluid/air. Spleen is now enlarged measuring 13.1 cm. Remaining liver, pancreas, spleen, adrenal glands, kidneys, ureters, bladder, and aorta appear unremarkable for noncontrast exam. Osseous structures intact again. No ventral or inguinal hernias. Impression: 1. New fecal stasis without obstruction and splenomegaly. 2. Remaining CT abdomen/pelvis without contrast exam is negative. Comment: Preliminary interpretation was made by [facility]. No critical discrepancy.
--- NOTE | 2020-10-08 08:03 | XRAY ---
Indication: Left upper quadrant pain and nausea. Comparison: November 09, 2014. 2 view abdomen remains nonacute and nonobstructed with now mild diffuse scattered colonic fecal debris. Stable cholecystectomy clips. Remaining solid organs and osseous structures are unremarkable. Single frontal chest again demonstrates normal heart, lungs, and bony thorax. Impression: Mild fecal stasis. Stable nonacute one view chest.
== END 2020-10-08 00:06 | disposition home or self-care (01) ==
LOC: ED 21:14
DX: R10.12 Left upper quadrant pain (principal); M54.5 Low back pain; Z72.0 Tobacco use; N80.9 Endometriosis, unspecified
CPT/HCPCS: 36000; 36415; 74022; 74176; 80053; 80307; 81001; 82150; 83690; 85025; 96360; 96374; 96375; 99284; J2405; J3010; A9270-GY

== ENCOUNTER 2023-09-18 20:12 | Emergency (ER) | payer BC, OTHER ==
[2023-09-18 20:26] VITALS: TEMP 97.3
[2023-09-18] MEDS ORDERED: Sodium Chloride 0.9% 1000 ML 1,000 ML IV STA (20:31)
[2023-09-18] MEDS ORDERED: Compazine 10 MG/2 ML IV ONE (20:33)
[2023-09-18] MEDS ORDERED: BENADRYL 50 MG/ML IV ONE (20:33)
[2023-09-18] MEDS ORDERED: BENADRYL 50 MG/ML ONE (20:37)
[2023-09-18] MEDS ORDERED: Sodium Chloride 0.9% 1000 ML 1,000 ML ONE (20:37)
[2023-09-18] MEDS ORDERED: Compazine 10 MG/2 ML ONE (20:37)
[2023-09-18 21:01] VITALS: RESP 16
[2023-09-18 22:02] VITALS: BP 115/80; PULSE 63; O2SAT 99
--- NOTE | 2023-09-18 22:06 | ERPHSYRPT ---
- History of Present Illness Time Seen by Provider: 09/18/23 20:30 Source: patient Exam Limitations: no limitations Patient Subjective Stated Complaint: pt states that she has had a migraine for the past week and half. pt states that she has history of migraines. 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 No trauma no fever no neck pain. Patient does have photophobia however this is normal for her migraine. Patient otherwise has no meningeal signs. Patient states her headache is the same as her usual headache. No vomiting no diaphoresis no abdominal pain no diarrhea. No rash. No focal or lateralizing symptoms. No neurologic complaints. Patient otherwise feels well. She voices no other complaints or concerns at this time. Portions of this note were created with voice recognition technology. There may be grammatical, spelling, punctuation or sound alike errors Timing/Duration: week(s) (1.5 weeks) Quality: aching Head Pain Location: temporal Severity of Pain-Max: moderate Severity of Pain-Current: mild Recent Head Trauma: no recent headache/trauma Modifying Factors: Improves With: exposure to light Associated Symptoms: sensitive to light, No fever/chills, No loss of consciousness, No nausea/vomiting, No stiff neck, No trouble walking, No visual disturbance, No weakness Previous symptoms: same symptoms as today Allergies/Adverse Reactions: Penicillins Allergy (Mild, Verified 09/18/23 20:16) Hives ketorolac tromethamine [From Toradol] Allergy (Verified 09/18/23 20:16) Hives latex Allergy (Verified 09/18/23 20:16) Rash sumatriptan [From Imitrex] Allergy (Verified 09/18/23 20:16) Rapid Heart Beat sumatriptan succinate [From Imitrex] Allergy (Verified 09/18/23 20:16) Rapid Heart Beat terbinafine HCl [From Lamisil] Allergy (Verified 09/18/23 20:16) Hives Home Medications: Dextroamphetamine/Amphetamine [Dextroamp-Amphetamin 30 mg Tab] 30 mg PO DAILY 09/18/23 [History] Erenumab-Aooe [Aimovig Autoinjector] 1 ml SQ UD 09/18/23 [History] Ondansetron [Ondansetron Odt ] 1 tab PO Q8HPRN PRN 09/18/23 [History] Sertraline HCl [Zoloft] 100 mg PO DAILY 09/18/23 [History] Tramadol HCl 50 mg [Ultram 50 mg] 50 mg PO Q8HPRN PRN 09/18/23 [History] Hx Tetanus, Diphtheria Vaccination/Date Given: No (unknown) Hx Influenza Vaccination/Date Given: Yes (2021) Hx Pneumococcal Vaccination/Date Given: No Travel Risk - International Travel Have you traveled outside of the country in past 3 weeks: No - Coronavirus Screening Are you exhibiting any of the following symptoms?: No Close contact with a COVID-19 positive Pt in past 14-21 Days: Yes - Vaccine Status Have you recieved a Covid-19 vaccination: Yes 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: [employer] - Vaccination Dates Date of 2cond Vaccination (if applicable): 2020 - Review of Systems Constitutional: No Symptoms, No Fever, No Chills Eyes: No Symptoms Ears, Nose, & Throat: No Symptoms Respiratory: No Symptoms, No Cough, No Dyspnea Cardiac: No Symptoms, No Chest Pain, No Edema, No Syncope Abdominal/Gastrointestinal: No Symptoms, No Abdominal Pain, No Nausea, No Vomiting, No Diarrhea Genitourinary Symptoms: No Symptoms, No Dysuria Musculoskeletal: No Symptoms, No Back Pain, No Neck Pain Skin: No Symptoms, No Rash Neurological: No Symptoms, No Dizziness, No Focal Weakness, No Sensory Changes Psychological: No Symptoms Endocrine: No Symptoms Hematologic/Lymphatic: No Symptoms Immunological/Allergic: No Symptoms All Other Systems: Reviewed and Negative - Past Medical History Pertinent Past Medical History: Yes Neurological History: Migraines ENT History: No Pertinent History Cardiac History: No Pertinent History Respiratory History: No Pertinent History Endocrine Medical History: No Pertinent History Musculoskeletal History: Arthritis GI Medical History: No Pertinent History History: No Pertinent History Psycho-Social History: Anxiety, Depression Female Reproductive Disorders: Endometriosis Other Medical History: KIDNEY STONES - Past Surgical History Past Surgical History: Yes Neuro Surgical History: No Pertinent History Cardiac: No Pertinent History Respiratory: No Pertinent History Gastrointestinal: Cholecystectomy Genitourinary: No Pertinent History Musculoskeletal: No Pertinent History Female Surgical History: Hysterectomy, Other Other Surgical History: TONSIL , ENDOMETROSIS - Social History Smoking Status: Current every day smoker How long have you smoked: 17 yrs Exposure to second hand smoke: No Alcohol Use: Socially Drug Use: none Patient Lives Alone: No Significant Family History: no pertinent family hx - Female History Hx Now: No - Nursing Vital Signs Nursing Vital Signs: Initial Vital Signs Blood Pressure 105/72 09/18/23 20:16 O2 Sat by Pulse Oximetry 97 09/18/23 20:16 Pain Scale Pain Intensity 3 - Physical Exam General Appearance: no apparent distress Eye Exam: PERRL/EOMI, eyes nml inspection Ears, Nose, Throat Exam: normal ENT inspection, TMs normal, pharynx normal, moist mucous membranes Neck Exam: normal inspection, supple, full range of motion, No meningismus, No Brudzinski, No Kernig's Respiratory Exam: normal breath sounds, lungs clear Cardiovascular Exam: regular rate/rhythm, normal heart sounds, normal peripheral pulses Gastrointestinal/Abdominal Exam: soft, No tenderness, No distention Back Exam: normal inspection, normal range of motion Extremity Exam: normal inspection, normal range of motion Mental Status Exam: alert, oriented x 3, cooperative, No agitated, No disoriented to person, No lethargy 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, normal speech, PERRL, No abnormal eye position, No facial droop Coordination/Gait Exam: normal cerebellar function Motor/Sensory Exam: no motor deficit, no sensory deficit Skin Exam: normal color, warm, dry, No rash Lymphatic Exam: No adenopathy SpO2 Interpretation: normal SpO2: 99 O2 Delivery: Room Air - Course Nursing assessment & vital signs reviewed: Yes Ordered Tests: Active Orders 24 hr Category Date Time Status IV Insertion STAT Care 09/18/23 20:31 Active Medication Summary Discontinued Medications Generic Name Dose Route Start Last Admin Trade Name Freq PRN Reason Stop Dose Admin Diphenhydramine HCl 50 mg 09/18/23 20:33 09/18/23 20:39 Diphenhydramine Hcl 50 Mg/Ml Vial IV 09/18/23 20:34 50 mg STAT ONE Administration Diphenhydramine HCl Confirm 09/18/23 20:37 Diphenhydramine Hcl 50 Mg/Ml Vial Administered 09/18/23 20:38 Dose 50 mg .ROUTE .STK-MED ONE Droperidol 1.25 mg 09/18/23 20:31 09/18/23 20:39 Droperidol 5 Mg/2 Ml Vial IV 09/18/23 20:32 1.25 mg STAT ONE Administration Droperidol Confirm 09/18/23 20:37 Droperidol 5 Mg/2 Ml Vial Administered 09/18/23 20:38 Dose 5 mg .ROUTE .STK-MED ONE Sodium Chloride 1,000 mls @ 999 mls/hr 09/18/23 20:31 09/18/23 21:43 Sodium Chloride 0.9% 1000 Ml IV 09/18/23 21:31 Infused .Q1H1M STA Infusion Sodium Chloride Confirm 09/18/23 20:37 Sodium Chloride 0.9% 1000 Ml Administered 09/18/23 20:38 Dose 1,000 mls @ ud .ROUTE .STK-MED ONE Prochlorperazine Edisylate 10 mg 09/18/23 20:33 09/18/23 20:39 Prochlorperazine Edisylate 10 Mg/2 Ml Vial IV 09/18/23 20:34 10 mg STAT ONE Administration Prochlorperazine Edisylate Confirm 09/18/23 20:37 Prochlorperazine Edisylate 10 Mg/2 Ml Vial Administered 09/18/23 20:38 Dose 10 mg .ROUTE .STK-MED ONE - Progress Progress: improved Air Movement: good Progress Note: Patient 38-year-old female with history of migraine headache presents today with the same. Patient's current migraine has been present for 1.5 weeks. No concerning history. Physical exam essentially nonremarkable. Patient received IV fluids Benadryl and droperidol for pain control. Headache significantly improved. Patient sleeping in room. Patient requesting discharge at this point. Reassessment is within normal limits. Will discharge patient home. Patient agrees to follow-up with primary care doctor within 48 hours for evaluation. Portions of this note were created with voice recognition technology. There may be grammatical, spelling, punctuation or sound alike errors Complexity of problems addressed is moderate acute complicated. Careful history and physical exam indicated to assure that patient's headache is indeed an exacerbation of her usual migraine headache versus a more concerning etiology No critical care time Complex of data reviewed and analyzed is none. No specialized testing ordered. Diagnosis made based on history and physical exam. Risk complication and or risk of morbidity/mortality of patient management is low. Management choices limited due to extensive allergy profile Vital stable. Time spent to discharge patient is approximately 10 minutes. No social determinants of health present to impede follow-up. Plan of care established for shared decision making. Portions of this note were created with voice recognition technology. There may be grammatical, spelling, punctuation or sound alike errors 09/18/23 22:15 Blood Culture(s) Obtained: No Antibiotics given: No Counseled pt/family regarding: diagnosis, need for follow-up - Departure Departure Disposition: Home Clinical Impression: Migraine Condition: Stable Critical Care Time: No Referrals: ALEXA WEINER MD [Primary Care Provider] - Follow up/PCP as directed Additional Instructions: Discharge/Care Plan ALEXA RUIZ was seen on 09/18/23 in the Emergency Room. The patient was counseled regarding Diagnosis,Lab results, Imaging studies, need for follow up and when to return to the Emergency Room. Prescriptions given: Discharge Note I have spoken with the patient and/or caregivers. I have explained the patient's condition, diagnosis and treatment plan based on the information available to me at this time. I have answered the patient's and/or caregiver's questions and addressed any concerns. The patient and/or caregivers have as good understanding of the patient's diagnosis, condition and treatment plan as can be expected at this point. The vital signs have been stable. The patient's condition is stable and appropriate for discharge from the emergency department. The patient will pursue further outpatient evaluation with the primary care physician or other designated or consulting physician as outlined in the discharge instructions. The patient and/or caregivers are agreeable to this plan of care and follow-up instructions have been explained in detail. The patient and/or caregivers have received these instruction. The patient/and or caregivers are aware that any significant change in condition or worsening of symptoms should prompt an immediate return to this or the closest emergency department or call 911.
== END 2023-09-18 22:09 | disposition home or self-care (01) ==
LOC: ED 20:12
DX: G43.909 Migraine, unspecified, not intractable, without status migrainosus (principal); Z79.891 Long term (current) use of opiate analgesic; Z79.899 Other long term (current) drug therapy; Z72.0 Tobacco use
CPT/HCPCS: 36000; 96360; 96374; 99284; J1200